=== PATIENT | female | born 1970 | race Asian ===

== ENCOUNTER 2018-01-24 21:59 | Emergency (ER) | payer OTHER ==
[~2018-01-24] VITALS: Ht 157.5 cm; Wt 56.7 kg
--- NOTE | ~2018-01-24 | EKG ---
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
[2018-01-24 22:26] LABS: HEMATOCRIT 38.8 % (37.0-47.0); HEMOGLOBIN 13.4 gm/dL (12.0-15.0); MCH 32.9 pg (26.0-34.0); MCHC 34.6 g/dL (28.0-37.0); MCV 95.2 fL (80.0-100.0); RBC 4.07 mil/uL (4.20-5.00); RDW 12.4 % (10.5-14.5); WBC 8.8 thou/uL (4.0-11.0)
[2018-01-24 22:30] LABS: CALCIUM 8.9 mg/dL (8.5-10.1); CREATININE 0.8 mg/dL (0.6-1.0); POTASSIUM 3.1 mmol/L (3.5-5.1)
[2018-01-24 22:30] LABS: URINE BILIRUBIN NEGATIVE (Negative); URINE BLOOD 2+ (Negative); URINE CLARITY CLEAR; URINE COLOR YELLOW; URINE GLUCOSE-RANDOM* 2+ (Negative); URINE KETONES NEGATIVE (Negative); URINE LEUKOCYTES-REFLEX NEGATIVE (Negative); URINE NITRITE-REFLEX NEGATIVE (Negative); URINE PROTEIN (DIPSTICK) NEGATIVE (Negative); URINE SPECIFIC GRAVITY 1.025 (1.005-1.035); URINE UROBILINOGEN 0.2 E.U./dl (0.2-1.0)
[2018-01-24 22:36] LABS: ALBUMIN 3.6 g/dL (3.4-5.0); TOTAL BILIRUBIN 0.4 mg/dL (<0.1-1.0); TOTAL PROTEIN 7.7 g/dL (6.4-8.2)
[2018-01-24 22:40] LABS: BACTERIA-REFLEX 1-9 Few /HPF (None Seen); CASTS None Seen /LPF (None Seen); CRYSTALS None Seen /LPF (None Seen); MUCUS 4-6 Moderate strn/LPF (None Seen); SQUAMOUS 0-3 Few /LPF (0-3); URINE RBC 3-10 Few /HPF (0-2); URINE WBC-REFLEX None Seen /HPF (0-5)
[2018-01-25 00:12] LABS: LIPASE 120 U/L (73-393); MAGNESIUM 1.7 mg/dL (1.8-2.4); TROPONIN-I <0.06 ng/mL (<0.06)
[2018-01-25] MEDS ORDERED: ZOFRAN ODT4 MG DISSOLVE (00:18)
== END 2018-01-25 01:13 | disposition home or self-care (01) ==
LOC: ER 21:59
PROVIDERS: Emergency Medicine
DX: E87.6 Hypokalemia (principal); R51 Headache; R73.9 Hyperglycemia, unspecified; R19.7 Diarrhea, unspecified; R63.0 Anorexia; Z90.711 Acquired absence of uterus with remaining cervical stump